=== PATIENT | male | born 1995 | race Caucasian/White ===

== ENCOUNTER 2017-02-09 17:35 | Emergency (ER) | payer SELFPAY ==
[~2017-02-09] VITALS: Ht 157.5 cm; Wt 58.5 kg
[2017-02-09 17:38] VITALS: Ht 157.5 cm; Wt 58.5 kg
[2017-02-09] MEDS ORDERED: ACETAMINOPHEN 500 MG TAB PO STA (17:51)
[2017-02-09] MEDS ORDERED: TETRACAINE 0.5% 4 ML OPH LEFT EYE ONE (18:00)
[2017-02-09] MEDS ORDERED: DIPHTH/TET/ACEL PERTUSS (ADULT) 0.5 ML VIAL IM* ONE (18:00)
[2017-02-09] MEDS ORDERED: ERYT1OIN6 OP (18:22)
[2017-02-09] MEDS ORDERED: IBUP-1542 PO (18:22)
--- NOTE | 2017-02-09 18:26 | ERD ---
ER Documentation Chief Complaint Chief Complaint pt liyah self with left eye pain and reddness since saturday HPI This 21-year-old male presents with a four-day history of irritation of his left eye. 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 He believes he may have a foreign body. Tetanus is not up-to-date. Denies any visual field deficits or visual changes. Denies any discharge or additional symptoms. ROS All systems reviewed and are negative except as per history of present illness. Medications Home Meds Active Scripts Erythromycin Base (Erythromycin) 1 Gm Oint...g., 1 GM OP TID for 7 Days Prov:CLARI ZUÑIGA MD 02/09/17 Ibuprofen* (Motrin*) 600 Mg Tab, 600 MG PO Q6, #15 TAB Prov:CLARI ZUÑIGA MD 02/09/17 Allergies Allergies: Coded Allergies: No Known Allergy (Unverified , 02/09/17) Physical Exam Vitals Vital Signs Date Time Temp Pulse Resp B/P Pulse Ox O2 Delivery O2 Flow Rate FiO2 02/09/17 17:38 99.1 72 16 127/66 98 Physical Exam Const: [] Alert, [id number]. Head: Atraumatic Eyes: Left scleral redness. There is a visible punctate foreign body at the border of the left cornea at 4:00. It is less than 1 mm. Anterior chambers appeared normal and eyes are Yamile. There is no periorbital swelling or proptosis or erythema and extraocular movements intact. ENT: Normal External Ears, Nose and Mouth. Neck: Full range of motion..~ No meningismus. Resp: Clear to auscultation bilaterally Cardio: Regular rate and rhythm, no murmurs Abd: Soft, non tender, non distended. Normal bowel sounds Skin: No petechiae or rashes Back: No midline or flank tenderness Ext: No cyanosis, or edema Neur: Awake and alert Psych: Normal Mood and Affect Results 24 hrs Current Medications Medications (Trade) Dose Ordered Sig/Neela Route PRN Reason Start Time Stop Time Status Last Admin Dose Admin Acetaminophen (Tylenol Tab) 500 mg ONCE STAT PO 02/09/17 17:51 02/09/17 17:52 DC Diphtheria/ Tetanus/Acell Pertussis (Adacel) 0.5 ml ONCE ONCE IM* 02/09/17 18:00 02/09/17 18:01 DC Tetracaine HCl (Tetracaine 0.5% Steri-Unit Ella) 1 drop ONCE ONCE LEFT EYE 02/09/17 18:00 02/09/17 18:01 DC Procedures/MDM Presents with a corneal foreign body without signs or symptoms of globe rupture , threats to vision orbital cellulitis or additional complications due to foreign body. Patient was given a tetanus booster. Procedure note-tetracaine was applied. Corneal foreign body was successfully removed using an 18-gauge needle. There is a very is slight area of rust ring. Patient will be discharged home with ophthalmology follow-up this week. She does return sooner for visual changes or visual deficits, facial swelling, new or worsening symptoms. The patient was stable with no new complaints during the ER course. Clinically, there is no current evidence to suggest meningitis, sepsis, acute abdomen, pneumonia, acute coronary syndrome, pulmonary embolism, or any other emergent condition appearing to require further evaluation or hospitalization. The patient should certainly return for any new or worsening symptoms per the aftercare instructions. They should otherwise follow-up with her primary care doctor for reevaluation this week. Departure Diagnosis: Primary Impression: Corneal foreign body Encounter type: initial encounter Laterality: left Qualified Code: T15.02XA - Foreign body of left cornea, initial encounter Condition: Stable Patient Instructions: Corneal Foreign Body, Removed, W/ Rust Ring Referrals: [facility] Hours: Mon - Fri 9:00 AM - 5:00 PM Additional Instructions: Va al leslie doctor/ specialista para mas evaluacon en el proximo semana PARA MAS SIMPTOMAS. posiblemente necesita autorizado de leslie doctor primario para specialista. Regresa para fiebre, o mas o nueva simptomas. CLARI ZUÑIGA MD Feb 09, 2017 18:26
== END 2017-02-09 19:20 | disposition home or self-care (01) ==
LOC: FTE 17:35
DX: T15.02XA Foreign body in cornea, left eye, initial encounter (principal); X58.XXXA Exposure to other specified factors, initial encounter; Y92.9 Unspecified place or not applicable

== ENCOUNTER 2018-04-16 18:45 | Emergency (ER) | payer MEDICAID, OTHER ==
[~2018-04-16] VITALS: Wt 55.0 kg
[~2018-04-16 18:45] MED LIST: ERYT1OIN6 OP; IBUP-1542 PO
[2018-04-16 19:31] VITALS: BP 117/73; PULSE 64; RESP 18
[2018-04-16] MEDS ORDERED: LIDOCAINE/MYLANTA 40 ML BTL PO STA (21:19)
[2018-04-16] MEDS ORDERED: BELLADONNA/PHENOBARBITAL TAB PO STA (21:19)
--- NOTE | 2018-04-16 21:55 | ERD ---
ER Documentation Chief Complaint Chief Complaint EPIGASTRIC PAIN WITH ESOPHAGEAL BURNING X'S 1 WEEK HPI 22-year-old male presents with epigastric pain for 1 week. States that eating makes it worse. States pain is constant. He was diagnosed 1 year ago with gastritis and given medication in the ER which made it better. Denies vomiting, fevers, diarrhea, chest pain, shortness of breath. Denies past medical history. Denies allergies. Denies medications. Denies surgeries. Denies alcohol, tobacco, drug use. Up to date on vaccines. ROS All systems reviewed and are negative except as per history of present illness. Medications Home Meds Active Scripts Famotidine* (Pepcid*) 20 Mg Tablet, 20 MG PO BID for GERD for 10 Days, #20 TAB Prov:REMIGIO POPE 04/16/18 Erythromycin Base (Erythromycin) 1 Gm Oint...g., 1 GM OP TID for 7 Days Prov:CLARI ZUÑIGA MD 02/09/17 Ibuprofen* (Motrin*) 600 Mg Tab, 600 MG PO Q6, #15 TAB Prov:CLARI ZUÑIGA MD 02/09/17 Allergies Allergies: Coded Allergies: No Known Allergy (Unverified , 02/09/17) PMhx/Soc Medical and Surgical Hx: pt denies Medical Hx, pt denies Surgical Hx Hx Alcohol Use: No Hx Substance Use: No Hx Tobacco Use: No Smoking Status: Never smoker FmHx Family History: No diabetes, No coronary disease, No other Physical Exam Vitals Vital Signs Date Temp Pulse Resp B/P (MAP) Pulse Ox O2 O2 Flow FiO2 Time Delivery Rate 04/16/18 97.3 64 18 117/73 97 19:31 (88) Physical Exam Const: No acute distress ENT: Normal External Ears, Nose and Mouth. Resp: Clear to auscultation bilaterally Cardio: Regular rate and rhythm, no murmurs Abd: Soft, non tender, non distended. Normal bowel sounds Skin: No petechiae or rashes Neur: Awake and alert Psych: Normal Mood and Affect Result Diagram: 04/16/18213004/16/182130 Results 24 hrs Laboratory Tests Test 04/16/18 21:31 04/16/18 21:34 White Blood Count 9.9 10^3/ul Red Blood Count 5.43 10^6/ul Hemoglobin 16.0 g/dl Hematocrit 47.9 % Mean Corpuscular Volume 88.2 fl Mean Corpuscular Hemoglobin 29.5 pg Mean Corpuscular Hemoglobin Concent 33.4 g/dl Red Cell Distribution Width 12.6 % Platelet Count 362 10^3/UL Mean Platelet Volume 9.2 fl Immature Granulocytes % 0.300 % Neutrophils % 70.1 % Lymphocytes % 22.3 % Monocytes % 6.4 % Eosinophils % 0.2 % Basophils % 0.7 % Nucleated Red Blood Cells % 0.0 /100WBC Immature Granulocytes # 0.030 10^3/ul Neutrophils # 6.9 10^3/ul Lymphocytes # 2.2 10^3/ul Monocytes # 0.6 10^3/ul Eosinophils # 0.0 10^3/ul Basophils # 0.1 10^3/ul Nucleated Red Blood Cells # 0.0 10^3/ul Sodium Level 143 mmol/L Potassium Level 4.1 mmol/L Chloride Level 101 mmol/L Carbon Dioxide Level 30 mmol/L Anion Gap 12 Blood Urea Nitrogen 11 mg/dl Creatinine 0.70 mg/dl Est Glomerular Filtrat Rate mL/min > 60 mL/min Glucose Level 102 mg/dl Calcium Level 10.5 mg/dl Total Bilirubin 0.5 mg/dl Direct Bilirubin 0.00 mg/dl Indirect Bilirubin 0.5 mg/dl Aspartate Amino Transf (AST/SGOT) 32 IU/L Alanine Aminotransferase (ALT/SGPT) 33 IU/L Alkaline Phosphatase 140 IU/L Total Protein 8.7 g/dl Albumin 5.2 g/dl Globulin 3.50 g/dl Albumin/Globulin Ratio 1.48 Lipase 76 U/L Bedside Glucose 93 mg/dL Current Medications Medications Dose Sig/Neela Start Time Status Last (Trade) Ordered Route PRN Stop Time Admin Dose Reason Admin 40 ml ONCE STAT 04/16/18 DC 04/16/18 Miscellaneous PO 21:19 04/16/18 21:38 Medication 21:22 (Gi Cocktail (2)) Belladonna/ 2 tab ONCE STAT 04/16/18 DC 04/16/18 Phenobarbital PO 21:19 04/16/18 21:37 () 21:22 Procedures/MDM ER course: CBC, CMP, lipase, Accu-Chek, GI cocktail given. All results within normal limits 22-year-old male presents with epigastric pain for 1 week. States that eating makes it worse. States pain is constant. He was diagnosed 1 year ago with gastritis and given medication in the ER which made it better. Denies vomiting, fevers, diarrhea, chest pain, shortness of breath. I have low suspicion for acute pancreatitis, AAA, aortic dissection, cholecystitis, myocardial infarction, appendicitis, or any other emergent problem. Patient most likely has gastritis versus GERD. Patient states he feels much better after receiving GI cocktail. Patient discharged 10-day trial of Pepcid to see if it helps alleviate his symptoms. Patient advised that this condition must be treated by primary care doctor on an outpatient basis. Patient discharged with strict ER precautions. Patient advised to follow up with PMD. All questions answered at discharge. Departure Diagnosis: Primary Impression: Epigastric pain Additional Impression: GERD (gastroesophageal reflux disease) Esophagitis presence: without esophagitis Qualified Codes: K21.9 - Gastro- esophageal reflux disease without esophagitis Condition: Stable REMIGIO POPE Apr 16, 2018 21:55
[2018-04-16] MEDS ORDERED: FAMO-96 PO (21:56)
== END 2018-04-16 22:46 | disposition home or self-care (01) ==
LOC: FTE 18:45
DX: K21.9 Gastro-esophageal reflux disease without esophagitis (principal)
CPT/HCPCS: 36415; 80053; 82962; 83690; 85025; Z7502; Z7610; 99283